=== PATIENT | female | born 1980 | race Hispanic/Latino ===

== ENCOUNTER 2019-06-15 19:06 | Inpatient (IN) | payer BC ==
[~2019-06-15] VITALS: Ht 157.5 cm; Wt 96.6 kg
[2019-06-15] MEDS ORDERED: SODIUM CHLORIDE 0.9% 1000ML 1,000 ML IV STA (19:20)
[2019-06-15 19:42] LABS: BASOPHILS % 0.3 % (0.0-1.0); EOSINOPHILS # (AUTO) 0.1 (0.0-0.4); EOSINOPHILS % 0.8 % (0.0-6.0); HEMATOCRIT 42.2 % (34.2-44.1); HEMOGLOBIN 13.9 g/dL (12.0-16.0); LYMPHOCYTES # (AUTO) 2.1 (1.0-3.2); LYMPHOCYTES % 22.2 % (18.0-39.1); MEAN CORPUSCULAR HEMOGLOBIN 28.3 pg (28-32); MEAN CORPUSCULAR HGB CONC 32.9 g/dL (31-35); MEAN CORPUSCULAR VOLUME 85.8 fL (81-99); MONOCYTES # (AUTO) 0.5 (0.2-0.8); MONOCYTES % 5.4 % (4.4-11.3); NEUTROPHILS # (AUTO) 6.5 (2.1-6.9); NEUTROPHILS % 70.5 % (38.7-80.0); PLATELET COUNT 245 x10e3/uL (140-360); RED BLOOD COUNT 4.92 x10e6/uL (3.6-5.1); RED CELL DISTRIBUTION WIDTH 12.8 % (11.7-14.4)
[2019-06-15 19:59] LABS: ALANINE AMINOTRANSFERASE 22 IU/L (0-55); ALBUMIN 3.9 g/dL (3.5-5.0); ALKALINE PHOSPHATASE 94 IU/L (40-150); ANION GAP 16.5 mmol/L (8-16); BLOOD UREA NITROGEN 14 mg/dL (7-26); BUN/CREATININE RATIO 17 (6-25); CALCIUM 9.5 mg/dL (8.4-10.2); CARBON DIOXIDE 25 mmol/L (22-29); CHLORIDE 104 mmol/L (98-107); CREATININE, SERUM 0.81 mg/dL (0.57-1.11); EST GLOMERULAR FILTRATION RATE > 60 ML/MIN (60-); GLUCOSE 139 mg/dL (74-118); POTASSIUM 3.5 mmol/L (3.5-5.1); SODIUM 142 mmol/L (136-145)
[2019-06-15] MEDS ORDERED: CEFTRIAXONE SOD 1 GM/NS 50 ML 50 ML IV ONE (20:00)
[2019-06-15] MEDS ORDERED: MORPHINE SULFATE INJ 4 MG/ML INJ 1ML IV ONE (20:00)
[2019-06-15] MEDS ORDERED: MORPHINE SULFATE 5 MG/ML VIAL IV ONE (20:00)
[2019-06-15] MEDS ORDERED: ONDANSETRON HCL INJ 2MG/ML 2ML 2 MG/ML VIAL IV ONE (20:00)
[2019-06-15] MEDS ORDERED: ACETAMINOPHEN 325 MG TAB PO ONE (20:30)
[2019-06-15 20:35] LABS: BILIRUBIN,URINE NEGATIVE (NEGATIVE); CLARITY,URINE SL CLOUDY (CLEAR); COLOR,URINE YELLOW (YELLOW); KETONES,URINE NEGATIVE (NEGATIVE); LEUKOCYTE ESTERASE ,URINE NEGATIVE (NEGATIVE); NITRITE,URINE NEGATIVE (NEGATIVE); PROTEIN,URINE DIPSTICK NEGATIVE (NEGATIVE); URINE UROBILINOGEN 0.2 mg/dL (0.2 - 1)
[2019-06-15 20:44] LABS: BACTERIA,URINE FEW /HPF; EPITHELIAL CELLS,URINE FEW /LPF; WBC,URINE (MAN) 0-5 /HPF (0-5)
[2019-06-15] MEDS ORDERED: IOPAMIDOL 370 MG/ML 200 ML INFUS..BTL INJ ONE (21:51)
[2019-06-15] MEDS ORDERED: SODIUM CHLORIDE 0.9% 50ML 50 ML ONE (21:51)
--- NOTE | 2019-06-15 21:56 | Diagnostic Imaging Report ---
EXAM: CT Abdomen and Pelvis WITH contrast INDICATION: Right lower quadrant pain COMPARISON: None. TECHNIQUE: Abdomen and pelvis were scanned utilizing a multidetector helical scanner from the lung base to the pubic symphysis after administration of IV contrast. Coronal and sagittal reformations were obtained. Routine protocol was performed. Scan was performed when during portal venous phase. IV CONTRAST: 100 mL of Isovue 370 ORAL CONTRAST: Water COMPLICATIONS: None RADIATION DOSE: Total DLP: 808 mGy*cm Estimated effective dose: (DLP x 0.015 x size factor) mSv CTDIvol has been reviewed. It is below the limits set by the Radiation Protocol Committee (RPC). Dose modulation, iterative reconstruction, and/or weight based adjustment of the mA/kV was utilized to reduce the radiation dose to as low as reasonably achievable. FINDINGS: LINES and TUBES: None. LOWER THORAX: Unremarkable HEPATOBILIARY: Diffuse decreased hepatic attenuation. The liver is enlarged, measures 18.6 cm in craniocaudal dimension at the right midclavicular line. No focal hepatic lesions. No biliary ductal dilation. GALLBLADDER: There are cholecystectomy clips. SPLEEN: No splenomegaly. PANCREAS: No focal masses or ductal dilatation. ADRENALS: No adrenal nodules KIDNEYS/URETERS: A 1 cm obstructive calculus at the right ureteropelvic junction with mild right hydronephrosis. Mild right perinephric fat stranding. Minimal right ureterectasis distal to the stone. No cystic or solid mass lesions. Kidneys are similar in enhancement pattern. GI TRACT: No abnormal distention, wall thickening, or evidence of bowel obstruction. Appendix is normal. PELVIC ORGANS/BLADDER: Unremarkable. LYMPH NODES: No lymphadenopathy. VESSELS: Unremarkable. PERITONEUM / RETROPERITONEUM: No free air or fluid. BONES: There are degenerative changes in the lumbar spine. SOFT TISSUES: Pfannenstiel incision scar intact.. Tiny periumbilical fat-containing hernia. IMPRESSION: 1. A 1 cm obstructive calculus at the right ureteropelvic junction with mild right hydronephrosis. 2. Hepatomegaly with hepatic steatosis. Signed by: Dylan Negron DO on 06/15/2019 9:53 PM
[2019-06-15] MEDS ORDERED: MORPHINE SULFATE INJ 4 MG/ML INJ 1ML IV PRN (22:15)
--- OUTSIDE RECORDS SUMMARY | 2019-06-15 22:28 | XMS REPORT ---
Author Author [facility] Address Unknown Phone Unavailable Care Team Providers Care Tobacco Grower Name Role Phone Kraig ALBARRAN Unavailable Unavailable Problems This patient has no known problems. Allergies, Adverse Reactions, Alerts This patient has no known allergies or adverse reactions. Medications This patient has no known medications. Results Test Description Test Time Test Comments Text Results Atomic Results Result Comments CT ABDOMEN/PELVIS W 2019-06-15 21:45:00 [place] [address] Patient Name: TERRY JOSE MR #: [id number] : 1980 Age/Sex: 38/F Req #: [id number] [facility] Physician: Ordered by: CELSO ALBARRAN MD Report #: [id number] Location: ER Room/Bed: Procedure: [id number] CT/CT ABDOMEN/PELVIS W Exam Date: 06/15/19 Exam Time: 2042 REPORT STATUS: Signed EXAM: CT Abdomen and Pelvis WITH contrast INDICAT ION: Right lower quadrant pain COMPARISON: None. TECHNIQUE: Abdomen and pelvis were scanned utilizing a multidetector helical scanner from the lung base to the pubic symphysis after administration of IV contrast. Coronal and sagittal reformations were obtained. Routine protocol was performed. Scan was performed when during portal venous phase. IV CONTRAST: 100 mL of Isovue 370 ORAL CONTRAST: Water COMPLICATIONS: None RADIATION DOSE: Total DLP: 808 mGy*cm Estimated effective dose: (DLP x 0.015 x size factor) mSv CTDIvol has been reviewed. It is below the limits set by the Radiation Protocol Committee (RPC). Dose modulation, iterative reconstruction, and/or weight based adjustment of the mA/kV was utilized to reduce the radiation dose to as low as reasonably achievable. FINDINGS: LINES and TUBES: None. LOWER THORAX: Unremarkable HEPATOBILIARY: Diffuse decreased hepatic attenuation. The cody er is enlarged, measures 18.6 cm in craniocaudal dimension at the right midclavicular line. No focal hepatic lesions. No biliary ductal dilation. GALLBLADDER: There are cholecystectomy clips. SPLEEN: No splenomegaly. PANCREAS: No focal masses or ductal dilatation. ADRENALS: No adrenal nodules KIDNEYS/URETERS: A 1 cm obstructive calculus at the right ureteropelvic junction with mild right hydronephrosis. Mild right perinephric fat stranding. Minimal right ureterectasis distal to the stone. No cystic or solid mass lesions. Kidneys are similar in enhancement pattern. GI TRACT: No abnormal distention, wall thickening, or evidence of bowel obstruction. Appendix is normal. PELVIC ORGANS/BLADDER: Unremarkable. LYMPH NODES: No lymphadenopathy. VESSELS: Unremarkable. PERITONEUM / RETROPERITONEUM: No free air or fluid. BONES: There are degenerative changes in the lumbar spine. SOFT TISSUES: Pfannenstiel incision scar intact.. Tiny periumbilical fat-containing hernia. IMPRESSION: 1. A 1 cm obstructive calculus at the right ureteropelvic junction with mild right hydronephrosis. 2. Hepatomegaly with hepatic steatosis. Signed by: Dylan Negron DO on 06/15/2019 9:53 PM Dictated By: DYLAN NEGRON DO 52 Transcribed By: QUITA on 06/15/192152 COPY TO: CELSO ALBARRAN MD
[2019-06-15] MEDS: CEFTRIAXONE SOD 1 GM/NS 50 ML 50 ML IV SCH (23:19)
[2019-06-15 23:26] VITALS: BP 173/101
--- NOTE | 2019-06-15 23:30 | NUR ---
RECEIVED PATIENT FROM ED AT THIS TIME VIA WHEELCHAIR, AMBULATED TO BED, STEADY GAIT NOTED. NO PAIN REPORTED AT THIS TIME. BP ELEVATED, LIKELY D/T TRANSFERRING, WILL REASSESS BP AFTER PATIENT HAS RESTED. NO S&S OF DISTRESS NOTED. REMINDED PATIENT OF NPO AFTER MIDNIGHT STATUS, PATIENT VERBALIZED UNDERSTANDING. EXPLAINED PROCESS OF URINATING IN HAT IN TOILET SO URINE CAN BE STRAINED, VERBALIZED UNDERSTANDING. PATIENT ORIENTED TO ROOM AND CALL LIGHT SYSTEM. BED LOCKED IN LOWEST POSITION, SIDE RAILS UPX2, CALL LIGHT IN REACH.
[2019-06-15] MEDS ORDERED: INFLUENZA VIRUS VAC SPLIT INJ 0.5 ML SYR IM SCH (23:45)
[2019-06-16] VITALS (8 sets, daily range): BP systolic 125–173; BP diastolic 72–101
[2019-06-16] MEDS ORDERED: HYDROCHLOROTH12.5 MG PO (00:20)
[2019-06-16] MEDS ORDERED: LOSARTAN POTAS100 MG PO (00:20)
[2019-06-16] MEDS: SODIUM CHLORIDE 0.9% 1000ML 1,000 ML IV SCH ×2 (05:49→19:04)
--- NOTE | 2019-06-16 11:03 | Consultation ---
DATE OF CONSULTATION: 06/16/2019 Urologic consultation. Consultation was called by the emergency room, Dr. Servin. CHIEF COMPLAINT/REASON FOR CONSULTATION: Kidney stones. HISTORY OF PRESENT ILLNESS: Mrs. Patterson is a very pleasant 38-year-old female who was in normal state of health and she has been experiencing acute sharp severe right-sided flank pain. She denied fevers. No chills. Positive nausea. No vomiting. PAST MEDICAL HISTORY: Denied. MEDICATIONS: Please see MAR. ALLERGIES: NKDA. SOCIAL HISTORY: Denied smoking, drinking. FAMILY HISTORY: Denied urologic stones or malignancies. REVIEW OF SYSTEMS: Noncontributory other than problems mentioned above for 12-organ systems PHYSICAL EXAMINATION: GENERAL: Middle-aged female, in no acute distress. VITAL SIGNS: Currently, temperature 96.4, pulse 64, respirations 18, and blood pressure 173/101. HEENT: Sclerae anicteric. NECK: Supple. BACK: Without costovertebral angle tenderness bilaterally currently. ABDOMEN: Soft, it is nontender, nondistended. No palpable mass. No palpable hernias. No palpable adenopathy. : Normal female external genitalia. EXTREMITIES: No edema. NEURO: Moves all four extremities. PSYCH: Alert and mood appropriate. SKIN: Intact. Normal color. PERTINENT LABORATORY DATA: CBC which was normal. Chem 7 normal except for glucose 139. BMP normal except for potassium 3.5. Urinalysis, 11 to 20 reds, 0-[address] scan revealing a 1 cm right UVJ stone. Mild right hydronephrosis and fatty liver. IMPRESSION: 1. Right 1 cm ureteropelvic junction calculus. 2. Right hydronephrosis. 3. Microscopic hematuria. 4. Hypertension. 5. Hypokalemia. 6. Renal colic. PLAN: Employ a brief trial passage. Likely the patient will need stenting. We will make the patient n.p.o. after midnight. Thank you for allowing me to participate in the care of your patient. I will be happy to follow along with you. MD MARYANN Thapa/MODL /[id number] cc: Milka Servin MD
[2019-06-16] MEDS ORDERED: HYDRALAZINE HCL 20 MG/ML VIAL IV PRN (12:45)
[2019-06-16] MEDS: LOSARTAN POTASSIUM 25 MG TAB PO SCH (13:27)
[2019-06-16] MEDS: HYDROCHLOROTHIAZIDE 25 MG TAB PO SCH (13:27)
--- NOTE | 2019-06-16 15:05 | History and Physical ---
CHIEF COMPLAINT: Right-sided flank pain, acute onset. HISTORY OF PRESENT ILLNESS: A 38-year-old female, morbidly obese, history of hypertension, reports to the ED with complaints of acute onset of right-sided flank pain that began last night. The patient reports that she was asleep and suddenly woke up with this right-sided flank pain. She denies any history of any kidney stones. No hematuria or any dysuria. Imaging studies here show 1 cm obstructing UPJ junction stone. The patient was evaluated at bedside. She is currently doing well with no complaints. She is scheduled for cystoscopy with ureteral stent placement tomorrow. REVIEW OF SYSTEMS: Pertinent positives: Right-sided flank pain. Pertinent negatives: Denies any chest pain, palpitation, nausea, vomiting, diarrhea, dysuria, hematuria, frequency, urgency, lightheadedness, dizziness, abdominal pain, headaches, shortness of breath, cough, congestion, fever, or any other complaints. The rest of 14-point review of systems are reviewed with the patient and are negative. ALLERGIES: NO KNOWN DRUG ALLERGIES. MEDICATIONS: Hydrochlorothiazide and losartan. PAST MEDICAL HISTORY: Hypertension and morbid obesity. FAMILY HISTORY: Hypertension and diabetes. PAST SURGICAL HISTORY: She has had cholecystectomy, , and carpal tunnel surgery. SOCIAL HISTORY: She is a social drinker. Does not smoke. PHYSICAL EXAMINATION: VITAL SIGNS: Temperature is 97.2, pulse 60 respiratory rate is 18, blood pressure 125/72, and pulse ox 99% on room air. GENERAL: Not in acute distress. Alert and oriented x3. Cooperative on examination. HEENT: Normocephalic, atraumatic. Eyes; pupils are equal, round, and reactive to light bilaterally. Extraocular movements are intact bilaterally. Throat; no evidence of erythema or exudates in the posterior pharynx. Has poor dentition. NECK: Supple. Good range of motion. PULMONARY: Clear to auscultation bilaterally. No wheezing, rales, or rhonchi. No crackles appreciated. PSYCHIATRIC: Positive S1, S2. No murmurs, rubs, or gallops. ABDOMEN: Soft, nondistended, nontender to palpation. Bowel sounds present. MUSCULOSKELETAL: Strength is 5/5 throughout. No evidence of any muscle deficits on examination. No weakness appreciated. NEUROLOGIC: Cranial nerves II through XII grossly intact. No evidence of any neurological deficits on exam. SKIN: Intact. Warm to touch. Good cap refill. PSYCHIATRIC: Normal affect and mood. EXTREMITIES: No edema. Good range of motion throughout. LABORATORY FINDINGS: White count is 9.2, hemoglobin 13.9, hematocrit 42, and platelets of 245. Chemistry; sodium 142, potassium 3.5, chloride 104, bicarb 25, anion gap of 16, BUN is 14, creatinine 0.81, glucose 139, calcium 9.5, total bilirubin is 0.4, AST 18, and ALT 22, alkaline phosphatase 94, total protein 7.7, albumin is 3.9, and beta hCG was negative. Albumin 3.9. Urinalysis was found to be RBCs 11-20. Microbiology; urine culture is pending. IMAGING STUDIES: CT abdomen and pelvis showed a 1 cm obstructing calculus of the right ureteral pelvic junction with mild right hydronephrosis. Hepatomegaly and hepatic steatosis. IMPRESSION: 1. Right-sided flank pain with right-sided 1 cm ureteropelvic junction calculus. 2. Right hydronephrosis secondary to obstruction. 3. Microcytic hematuria. 4. Hypertension. 5. Morbid obesity. PLAN: At this time, she is scheduled by Urology tomorrow for cystoscopy with the right ureteral stent placement. She is on IV antibiotics, antinausea medication, IV fluids, and pain control. Resume same antihypertensive medications. Encourage ambulation. Regular diet. N.p.o. after midnight. Lovenox for DVT prophylaxis. MD JAVIER Abdi/YESYL /[id number]
--- NOTE | 2019-06-16 15:32 | Diagnostic Imaging Report ---
EXAM: Abdomen 2 Views INDICATION: ^URETEROPELVIC JUNCTION OBSTUCTION ^[id number] ^1500 COMPARISON: CT abdomen and pelvis 06/15/2019 FINDINGS: Lines/tubes: None. Moderate amount of stool in the colon. No dilated loops of small bowel. Status post cholecystectomy. Unchanged 1 cm calcification in the region of the proximal right ureter. Few additional calcifications in the pelvis corresponds to a phlebolith noted on yesterday's CT. No abnormal soft tissue masses. No degenerative changes in the lumbar spine and pelvis. IMPRESSION: 1. Persistent 1 cm calcification in the region of the proximal right ureter. 2. Retained moderate stool burden. Signed by: Dr. May Allen M.D. on 06/16/2019 3:29 PM
[2019-06-16] MEDS: ENOXAPARIN 30 MG/0.3 ML SYR SC SCH (18:45)
--- NOTE | 2019-06-16 19:00 | NUR ---
RECEIVED PATIENT IN BEDSIDE REPORT. PATIENT RESTING IN BED AT THIS TIME. NO PAIN REPORTED AT THIS TIME. REMINDED PATIENT TO URINATE IN HAT IN TOILET SO URINE CAN BE STRAINED AND OF NPO STATUS AFTER MIDNIGHT, PATIENT VERBALIZED UNDERSTANDING. BED LOCKED IN LOWEST POSITION, SIDE RAILS UPX2, CALL LIGHT IN REACH.
--- NOTE | 2019-06-16 20:08 | NUR ---
SPOKE WITH MD BENITEZ, PATIENT HAS NOT PASSED STONE YET, MD ASKED PATIENT BE PLACED ON SCHEDULE FOR PROCEDURE TOMORROW. CONSENT IS SIGNED, PATIENT NPO AFTER MIDNIGHT. SPOKE WITH SARBJIT, STRAIGHT LINE PRESS SETTER, STATED SHE WILL PLACE PATIENT ON SCHEDULE FOR TOMORROW.
[2019-06-16] MEDS: CEFTRIAXONE SOD 1 GM/NS 50 ML 50 ML IV SCH (21:57)
[2019-06-17] VITALS (8 sets, daily range): BP systolic 111–176; BP diastolic 69–97
[2019-06-17] MEDS: SODIUM CHLORIDE 0.9% 1000ML 1,000 ML IV SCH ×3 (06:08→14:08)
[2019-06-17 06:30] LABS: BASOPHILS % 0.3 % (0.0-1.0); EOSINOPHILS # (AUTO) 0.1 (0.0-0.4); EOSINOPHILS % 0.9 % (0.0-6.0); HEMATOCRIT 40.4 % (34.2-44.1); HEMOGLOBIN 12.8 g/dL (12.0-16.0); LYMPHOCYTES # (AUTO) 2.4 (1.0-3.2); LYMPHOCYTES % 18.3 % (18.0-39.1); MEAN CORPUSCULAR HEMOGLOBIN 27.9 pg (28-32); MEAN CORPUSCULAR HGB CONC 31.7 g/dL (31-35); MEAN CORPUSCULAR VOLUME 88.2 fL (81-99); MONOCYTES # (AUTO) 0.7 (0.2-0.8); MONOCYTES % 5.3 % (4.4-11.3); NEUTROPHILS # (AUTO) 9.6 (2.1-6.9); NEUTROPHILS % 74.7 % (38.7-80.0); PLATELET COUNT 232 x10e3/uL (140-360); RED BLOOD COUNT 4.58 x10e6/uL (3.6-5.1); RED CELL DISTRIBUTION WIDTH 12.8 % (11.7-14.4)
[2019-06-17 06:51] LABS: ANION GAP 11.8 mmol/L (8-16); BLOOD UREA NITROGEN 8 mg/dL (7-26); BUN/CREATININE RATIO 13 (6-25); CALCIUM 8.9 mg/dL (8.4-10.2); CARBON DIOXIDE 28 mmol/L (22-29); CHLORIDE 103 mmol/L (98-107); CREATININE, SERUM 0.64 mg/dL (0.57-1.11); EST GLOMERULAR FILTRATION RATE > 60 ML/MIN (60-); GLUCOSE 119 mg/dL (74-118); POTASSIUM 3.8 mmol/L (3.5-5.1); SODIUM 139 mmol/L (136-145)
--- NOTE | 2019-06-17 06:55 | NUR ---
Received patient lying in bed with eyes closed. Spouse at bedside. Respiration even and unlabored without SOB. Call light in reach.
--- NOTE | 2019-06-17 06:56 | NUR ---
Received patient lying in bed with eyes closed. Respiration even and unlabored without SOB. Call light in reach.
[2019-06-17] MEDS: LOSARTAN POTASSIUM 25 MG TAB PO SCH (09:00)
[2019-06-17] MEDS: HYDROCHLOROTHIAZIDE 25 MG TAB PO SCH (09:00)
[2019-06-17] MEDS ORDERED: IOPAMIDOL 300MG/ML 50ML INFUS..BTL IV ONE (09:48)
--- NOTE | 2019-06-17 12:00 | NUR ---
Patient went to OR at this time.
[2019-06-17] MEDS ORDERED: LABETALOL HCL 20 ML ONE (12:34)
--- NOTE | 2019-06-17 12:55 | NUR ---
Patient is transported back to room from surgery. Patient voided. Denies pain. Respiration even and unlabored without SOB. Call light in reach.
[2019-06-17] MEDS ORDERED: MIDAZOLAM HCL 2 MG/2 ML VIAL ONE (13:41)
[2019-06-17] MEDS: ONDANSETRON HCL INJ 2MG/ML 2ML 2 MG/ML VIAL IV PRN (15:10)
[2019-06-17] MEDS ORDERED: HYDROCODONE/APAP 5MG-325MG TAB PO PRN (16:15)
[2019-06-17] MEDS: ENOXAPARIN 30 MG/0.3 ML SYR SC SCH (16:40)
[2019-06-17] MEDS ORDERED: LIDOCAINE HCL 2% LOCAL INJ 5 ML SDV VIAL INJ ONE (18:35)
[2019-06-17] MEDS ORDERED: DEXAMETHASONE SOD PHOS INJ 4 MG/ML VIAL ONE (18:35)
[2019-06-17] MEDS ORDERED: ONDANSETRON HCL INJ 2MG/ML 2ML 2 MG/ML VIAL ONE (18:35)
[2019-06-17] MEDS ORDERED: PROPOFOL IV EMULSION 10 MG/ML 20 ML VIAL ONE (18:35)
[2019-06-17] MEDS ORDERED: SEVOFLURANE INHAL SOLN 250 ML PEN BTL ONE (18:35)
--- NOTE | 2019-06-17 19:11 | NUR ---
PT IS RESTING IN BED. RESPIRATION IS EVEN AND UNLABORED, NO DISTRESS NOTED. BED IN THE LOWEST POSITION, LOCKED, AND CALL LIGHT WITHIN REACH. WILL CONTINUE TO MONITOR.
--- NOTE | 2019-06-17 19:20 | NUR ---
Report given to slot shift manager. respiration even and unlabored without SOB. Call light in reach.
[2019-06-17] MEDS: CEFTRIAXONE SOD 1 GM/NS 50 ML 50 ML IV SCH (21:10)
[2019-06-18] VITALS (8 sets, daily range): BP systolic 137–171; BP diastolic 83–102
[2019-06-18] MEDS: SODIUM CHLORIDE 0.9% 1000ML 1,000 ML IV SCH ×4 (01:35→22:03)
[2019-06-18 06:45] LABS: BASOPHILS % 0.1 % (0.0-1.0); HEMATOCRIT 39.8 % (34.2-44.1); HEMOGLOBIN 13.2 g/dL (12.0-16.0); LYMPHOCYTES # (AUTO) 2.2 (1.0-3.2); MEAN CORPUSCULAR HEMOGLOBIN 28.6 pg (28-32); MEAN CORPUSCULAR HGB CONC 33.2 g/dL (31-35); MEAN CORPUSCULAR VOLUME 86.1 fL (81-99); MONOCYTES # (AUTO) 0.6 (0.2-0.8); MONOCYTES % 3.5 % (4.4-11.3); NEUTROPHILS # (AUTO) 13.9 (2.1-6.9); NEUTROPHILS % 82.2 % (38.7-80.0); PLATELET COUNT 273 x10e3/uL (140-360); RED BLOOD COUNT 4.62 x10e6/uL (3.6-5.1); RED CELL DISTRIBUTION WIDTH 12.6 % (11.7-14.4)
[2019-06-18 07:00] LABS: BLOOD UREA NITROGEN 10 mg/dL (7-26); BUN/CREATININE RATIO 15 (6-25); CALCIUM 9.8 mg/dL (8.4-10.2); CARBON DIOXIDE 26 mmol/L (22-29); CHLORIDE 104 mmol/L (98-107); CREATININE, SERUM 0.68 mg/dL (0.57-1.11); EST GLOMERULAR FILTRATION RATE > 60 ML/MIN (60-); GLUCOSE 118 mg/dL (74-118); SODIUM 139 mmol/L (136-145)
--- NOTE | 2019-06-18 07:00 | NUR ---
Received patient lying in bed with eyes open. Respiration even and unlabored without SOB. Family member at bedside. Call light in reach.
[2019-06-18] MEDS: LOSARTAN POTASSIUM 25 MG TAB PO SCH (08:33)
[2019-06-18] MEDS: HYDROCHLOROTHIAZIDE 25 MG TAB PO SCH (08:34)
--- NOTE | 2019-06-18 12:05 | Operative Report ---
DATE OF PROCEDURE: 06/15/2019 SURGEON: Laoy Doyle MD PREOPERATIVE DIAGNOSES: 1. Right-sided hydronephrosis. 2. Microscopic hematuria. POSTOPERATIVE DIAGNOSES: 1. Right-sided hydronephrosis. 2. Microscopic hematuria. PROCEDURES: 1. Cystourethroscopy with left ureter catheterization, left retrograde pyelogram (separate procedure for microscopic hematuria). 2. Cystourethroscopy with insertion of a right indwelling stent (entirely separate procedure for right hydronephrosis). 3. Supervision of fluoroscopy. 4. Interpretation of retrograde pyelography. ANESTHESIA: General. ESTIMATED BLOOD LOSS: Minimal. COMPLICATIONS: None. INDICATIONS: Ms. Patterson is a very pleasant 38-year-old female, who admitted to the hospital with a large 1 cm right UPJ stone and hydronephrosis. She and I had a long discussion alternatives, risks, and benefits of including nothing, cystoscopy, stent placement, percutaneous nephrostomy. She voiced understanding of the options, alternatives, risks, and benefits, and elected to proceed. PROCEDURE IN DETAIL: After informed consent was obtained, the patient was taken to the operative suite, placed supine on the operating table, and underwent general anesthesia by the Anesthesia Service. She was placed in the dorsal lithotomy position, sterilely prepped and draped in standard fashion for cystoscopy. A 21-Mohawk cystoscopy was inserted per urethra. Normal urethra was noted. Panendoscopy of the bladder revealed no tumors, no stones. Both orifices in normal anatomic location and position. Bilateral retrograde pyelogram was performed; left was normal; the right revealed a very large 1 cm ureteropelvic junction stone was manipulated into the renal pelvis. The ureteral stent was deployed with a coil in the renal pelvis and a coil in the bladder. The patient's bladder was drained. She was awakened from anesthesia and transported to recovery room in excellent condition. Supervision of fluoroscopy, interpretation of retrograde pyelography: I was present for the entire procedure and supervised fluoroscopy. There was no radiologist present for the entire procedure. Attention was turned towards the left and right ureters, which were catheterized and retrograde pyelogram was performed revealing delicate ureters in left, delicate pelvocaliceal systems; on the right, 1 cm UPJ stone with proximal hydronephrosis. Postoperative views on the right side of the stent in adequate position. MD MARYANN Thapa/MICA /[id number]
--- NOTE | 2019-06-18 14:10 | NUR ---
Visit made by the Spiritual Care Department Pastoral Visitor, Hina Zavala. PV provided pastoral presence, prayer, hospitality, and supportive listening. Pastoral Visitor informed pt/family of the scope of [employer] and availability. JOSE ANTONIO MADRIGAL Director [employer] Spiritual Care Department O: [phone] Pager: [phone] ([phone] calling from)
[2019-06-18] MEDS: ENOXAPARIN 30 MG/0.3 ML SYR SC SCH (16:35)
[2019-06-18] MEDS: CEFAZOLIN SOD 1 GM/NS 50ML 50 ML IV SCH ×2 (16:35→21:17)
--- NOTE | 2019-06-18 19:09 | NUR ---
PT IS RESTING IN BED WATCHING TELEVISION. RESPIRATION IS EVEN AND UNLABORED, NO DISTRESS NOTED. BED IN THE LOWEST POSITION, LOCKED, AND CALL LIGHT WITHIN REACH. WILL CONTINUE TO MONITOR.
--- NOTE | 2019-06-18 19:11 | NUR ---
Report given to shift boss. Respiration even and unlabored without SOB. Call light in reach.
--- NOTE | 2019-06-18 21:40 | Consultation ---
DATE OF CONSULTATION: REASON FOR CONSULTATION: UTI with Staphylococcus aureus and renal stone. HISTORY OF PRESENT ILLNESS: This patient is very pleasant 38-year-old female, obese patient, hypertension, comes in with pain on the right side, acute. She has for couple of days, so she came here. There was no fever or chills. She came to the emergency room. In the emergency room, she was diagnosed with kidney stone. She was admitted. She has been seen by Urology, stent was placed. However, her urine cultures is growing Staphylococcus aureus. I was asked to see her. The patient is currently lying in bed comfortably, complaining of pain as mentioned above. PAST MEDICAL HISTORY: Obesity and hypertension. PAST SURGICAL HISTORY: Denies. ALLERGIES: NKA. SOCIAL HISTORY: There is no smoking, drug abuse, or alcohol abuse. FAMILY HISTORY: Hypertension and diabetes. HOME MEDICATIONS: Medication list; she is on Cozaar, hydrochlorothiazide, Zofran. She was on Rocephin. REVIEW OF SYSTEMS: At the present time: HEENT: Negative. PULMONARY: Negative. CARDIAC: Negative. : Negative. SKIN: There is no rash. LABORATORY DATA: Reviewed. As mentioned above, the urine shows Staphylococcus aureus. When she first came, she had a white count of 9.24, came up to 16.8; hemoglobin 39. Her sodium was 139 and potassium 4. IMPRESSION AND PLAN: 1. Urinary tract infection with Staphylococcus aureus. Recommendation; discontinue Rocephin and put her on Ancef 1 g q.8. Recheck CBC. She needs 14 days, perhaps longer since she had the stent now and their plan for her is lithotripsy. So, I am going to put her on oral antibiotic after the procedure. We will follow as an outpatient. 2. Obesity. 3. Hypertension. 4. We will follow. MD TARAH Alcazar/MICA /[id number]
[2019-06-19] VITALS (8 sets, daily range): BP systolic 123–164; BP diastolic 76–111
[2019-06-19] MEDS: CEFAZOLIN SOD 1 GM/NS 50ML 50 ML IV SCH ×3 (05:07→21:59)
[2019-06-19 06:46] LABS: BASOPHILS # (AUTO) 0.1 (0.0-0.1); BASOPHILS % 0.4 % (0.0-1.0); EOSINOPHILS # (AUTO) 0.1 (0.0-0.4); EOSINOPHILS % 0.9 % (0.0-6.0); HEMATOCRIT 40.8 % (34.2-44.1); HEMOGLOBIN 12.9 g/dL (12.0-16.0); LYMPHOCYTES # (AUTO) 3.9 (1.0-3.2); LYMPHOCYTES % 32.5 % (18.0-39.1); MEAN CORPUSCULAR HGB CONC 31.6 g/dL (31-35); MEAN CORPUSCULAR VOLUME 88.5 fL (81-99); MONOCYTES # (AUTO) 0.8 (0.2-0.8); MONOCYTES % 6.7 % (4.4-11.3); NEUTROPHILS # (AUTO) 6.9 (2.1-6.9); PLATELET COUNT 247 x10e3/uL (140-360); RED BLOOD COUNT 4.61 x10e6/uL (3.6-5.1); RED CELL DISTRIBUTION WIDTH 13.1 % (11.7-14.4)
[2019-06-19 07:12] LABS: ANION GAP 12.2 mmol/L (8-16); BLOOD UREA NITROGEN 11 mg/dL (7-26); BUN/CREATININE RATIO 15 (6-25); CALCIUM 8.9 mg/dL (8.4-10.2); CARBON DIOXIDE 29 mmol/L (22-29); CHLORIDE 102 mmol/L (98-107); CREATININE, SERUM 0.75 mg/dL (0.57-1.11); EST GLOMERULAR FILTRATION RATE > 60 ML/MIN (60-); GLUCOSE 101 mg/dL (74-118); POTASSIUM 4.2 mmol/L (3.5-5.1); SODIUM 139 mmol/L (136-145)
[2019-06-19] MEDS: LOSARTAN POTASSIUM 25 MG TAB PO SCH (08:38)
[2019-06-19] MEDS: HYDROCHLOROTHIAZIDE 25 MG TAB PO SCH (08:38)
[2019-06-19] MEDS ORDERED: ACETAMINOPHEN 325 MG TAB PO PRN (13:15)
[2019-06-19] MEDS: ONDANSETRON HCL INJ 2MG/ML 2ML 2 MG/ML VIAL IV PRN (16:51)
[2019-06-19] MEDS: ENOXAPARIN 30 MG/0.3 ML SYR SC SCH (18:10)
--- NOTE | 2019-06-19 19:00 | NUR ---
RECEIVED PATIENT IN BEDSIDE REPORT. PATIENT STATES SHE IS NO LONGER NAUSEATED, BUT DOES REPORT A HEADACHE OF 8/10, WILL ADMINISTER PAIN MEDICATION. REMINDED PATIENT TO CONTINUE STRAINING URINE, PATIENT VERBALIZED UNDERSTANDING. R FA 18G IV ASYMPTOMATIC, INTACT, AND PATENT. NO S&S OF DISTRESS NOTED. BED LOCKED IN LOWEST POSITION, SIDE RAILS UPX2, CALL LIGHT IN REACH.
[2019-06-19] MEDS: SODIUM CHLORIDE 0.9% 1000ML 1,000 ML IV SCH (20:39)
[2019-06-20] VITALS: BP 158/95
[2019-06-20 04:00] VITALS: BP 140/92
[2019-06-20] MEDS: CEFAZOLIN SOD 1 GM/NS 50ML 50 ML IV SCH (05:22)
--- NOTE | 2019-06-20 07:21 | Discharge Summary ---
FINAL DISCHARGE DIAGNOSES: 1. Right-sided flank pain with underlying nephrolithiasis, 1 cm obstructed stone, status post right ureteral stent placement, performed by Urology. 2. Urinary tract infection. 3. Leukocytosis, resolved. CONSULTANTS: Urology and Infectious Disease. PHYSICAL EXAMINATION: VITAL SIGNS: Temperature is 97.7, pulse is 70, respiratory rate is 18, blood pressure 123/76, pulse ox 96% on room air. LABORATORY FINDINGS: Show white count is 11.9, hemoglobin 12.9, hematocrit is 40.8, and platelets of 247. Chemistry; sodium 139, potassium 4.2, chloride 102, bicarb 29, anion gap of 12, BUN 11, creatinine 0.75, glucose 101, calcium is 8.9. LFTs within normal range. Albumin 3.9. Beta-hCG is negative. Urinalysis, 11 to 20 rbc's. MICROBIOLOGY: Urine culture positive for Staphylococcus aureus. IMAGING STUDIES: CT abdomen and pelvis showed a 1 cm obstructing calculus at the right ureteropelvic junction with mild right hydronephrosis. Hepatomegaly with hepatic steatosis. Abdominal x-ray shows a persistent 1 cm calcification in the region of the proximal right ureter. Retained moderate stool burden. HOSPITAL COURSE: A 38-year-old female, morbidly obese, comes into the ED with complaints of right-sided flank pain. Imaging studies, CT abdomen and pelvis consistent with a right 1 cm ureteropelvic obstruction, renal stone, requiring Urology consultation. The patient underwent status post cystoscopy with pyelogram on 06/17/2019. With a right ureteral stent placement. While here, the patient was on IV antibiotics. Her urine cultures were positive for Staphylococcus aureus, in which Infectious Disease was consulted. The patient will be discharged on oral Keflex for 2 weeks. The patient was cleared for discharge by ID and Urology. She was advised to follow up with Urology in 2 weeks' time as well as Infectious Disease. On the day of discharge, vital signs were stable, labs reviewed and stable. The patient is seen and evaluated, and examined thoroughly on the day of discharge. No other complaints. The patient verbalized understanding and agrees to plan of care to follow up accordingly as an outpatient with the primary care physician in 1 week and urologist and Infectious Disease in 2 weeks' time. MEDICATIONS: See med reconciliation form. DISPOSITION: Home. CONDITION: Stable. DIET: Heart healthy. In the event of any worsening symptoms, the patient was advised to come back to the ED for further evaluation. Discharge summary took greater than 35 minutes. MD JAVIER Abdi/MICA /[id number]
[2019-06-20 08:00] VITALS: BP 147/98
[2019-06-20] MEDS: HYDROCHLOROTHIAZIDE 25 MG TAB PO SCH (09:29)
[2019-06-20] MEDS: LOSARTAN POTASSIUM 25 MG TAB PO SCH (09:31)
[2019-06-20] MEDS: SODIUM CHLORIDE 0.9% 1000ML 1,000 ML IV SCH (09:59)
[2019-06-20 12:00] VITALS: BP 132/89
--- NOTE | 2019-06-21 11:38 | Discharge Summary ---
FINAL DISCHARGE DIAGNOSES: 1. Right-sided flank pain with underlying nephrolithiasis, 1 cm obstructed stone, status post right ureteral stent placement performed by Urology. 2. Urinary tract infection. 3. Leukocytosis, resolved. CONSULTANTS: Urology and Infectious Disease. PHYSICAL EXAMINATION: VITAL SIGNS: Temperature is 98.4, pulse 82, respiratory rate is 20, blood pressure 184/89, pulse ox 100% on room air. LABORATORY DATA: Lab findings show WBCs 11.9, hemoglobin 12.9, hematocrit 41, platelets of 247. Chemistry, sodium 139, potassium 4.2, chloride 102, bicarb 29, anion gap of 12, BUN is 11, creatinine is 0.75, glucose 101, calcium is 8.9. LFTs normal. Albumin 3.9. Beta HCG negative. Urinalysis, 11 to 20 RBCs. MICROBIOLOGY: Urine culture positive for Staphylococcus aureus. IMAGING STUDIES: CT abdomen showed a 1 cm obstructing calculus of the right ureteropelvic junction with right hydronephrosis. Hepatomegaly and hepatic steatosis. Abdominal x-ray shows persistent 1 cm calcification in region of the proximal right ureter. Retained moderate stool burden. HOSPITAL COURSE: A 38-year-old female, morbidly obese, came into the ER with complaints of right-sided flank pain. Imaging studies, CT abdomen and pelvis consistent with a right 1 cm ureteropelvic obstruction with a renal stone requiring Urology consultation. The patient underwent status post cystoscopy with pyelogram on 06/17/2019 and had a right ureteral stent placed. While here, the patient was doing well. She was on IV antibiotics. Her urine culture was positive for Staphylococcus aureus, in which ID was consulted. The patient was discharged on oral Keflex for 2 weeks as per recommendations by ID. The patient was stable for discharge by ID and Urology. The patient was in the process of being discharged on 06/19/2019. Her blood pressure was slightly elevated. She was having some nausea and vomiting. This morning I came in at 10:30, 09/09/2018, the patient was doing well. No nausea. No vomiting. No abdominal pain. Blood pressure stable. The patient reports she is doing well, ready for discharge to home. She has been cleared for discharge by all consultants. She was advised to follow up upon discharge. Her vital signs were stable. Labs reviewed and stable. The patient is seen and evaluated, examined thoroughly on the day of discharge. No other complaints. The patient verbalized understanding and agreed with plan of care to follow up accordingly as an outpatient with the primary care physician in 1 week, and urologist and with Infectious Disease in 1 to 2 weeks' time. MEDICATIONS: See med reconciliation form. DISPOSITION: Home. CONDITION: Stable. DIET: Heart healthy. In the event of any worsening symptoms, the patient was advised to come back to the ED for further evaluation. Discharge summary took greater than 35 minutes. MD JAVIER Abdi/MODL /[id number]
== END 2019-06-20 15:07 | disposition home or self-care (01) | DRG 661 ==
LOC: ER 19:06 → INTOOBSV 22:25 → ERHOLD 22:25 → MED/SURG 23:33 → OBSVTOIN 06-18 10:51 → INTOOBSV 06-18 12:50
PROVIDERS: ADMIT Internal Medicine; ATTEND Internal Medicine
PROC: 0T768DZ Dilation of Right Ureter with Intraluminal Device, Via Natural or Artificial Opening Endoscopic (ICD-10-PCS; principal; 2019-06-15)
PROC: BT1F1ZZ Fluoroscopy of Left Kidney, Ureter and Bladder using Low Osmolar Contrast (ICD-10-PCS; 2019-06-15)
DX: N13.6 Pyonephrosis (principal); E66.01 Morbid (severe) obesity due to excess calories; I10 Essential (primary) hypertension; R31.29 Other microscopic hematuria; E87.6 Hypokalemia; B95.61 Methicillin susceptible Staphylococcus aureus infection as the cause of diseases classified elsewhere; Z68.39 Body mass index [BMI] 39.0-39.9, adult
CPT/HCPCS: 36415; 74018; 74420; 80048; 85025; 87086; 87186; C1758; C2617; G0378; J0360; J0690; J0696; J1100; J1650; J2001; J2250; J2270; J2405; J7030

== ENCOUNTER → 2019-06-28 | Day surgery (SDC) | payer BC ==
--- NOTE | 2019-06-26 14:52 | Diagnostic Imaging Report ---
Exam: KUB - 2 views Indication: Preoperative Comparison: KUB of 06/16/2019 Findings: Right lower pole renal calculus measures up to 12 mm. Right internal nephroureteral stent in place with proximal loop is not fully formed. No radiographically apparent left renal calculi. Phleboliths in the pelvis. Osseous structures appear unremarkable. Status post cholecystectomy. Impression: Right lower pole renal calculus measuring up to 12 mm. Right internal nephroureteral stent in place with proximal loop not fully formed. Signed by: Lola Galarza MD on 06/26/2019 2:49 PM
[~2019-06-28] MED LIST: CEFTRIAXONE SOD 1 GM/NS 50 ML 50 ML IV ONE; CEPHALEXIN500 MG PO; DEXAMETHASONE SOD PHOS INJ 4 MG/ML VIAL ONE; HYDROCHLOROTH12.5 MG PO; LIDOCAINE HCL 2% LOCAL INJ 5 ML SDV VIAL INJ ONE; LOSARTAN POTAS100 MG PO; LOSARTAN-HCTZ1 EACH PO; MIDAZOLAM HCL 2 MG/2 ML VIAL ONE; ONDANSETRON HCL INJ 2MG/ML 2ML 2 MG/ML VIAL ONE; PROPOFOL IV EMULSION 10 MG/ML 20 ML VIAL ONE; SEVOFLURANE INHAL SOLN 250 ML PEN BTL ONE
[2019-06-28 10:00] VITALS: BP 135/95
--- NOTE | 2019-06-28 17:32 | Operative Report ---
DATE OF PROCEDURE: 06/28/2019 SURGEON: Layo Doyle MD PREOPERATIVE DIAGNOSIS: Right kidney stone. POSTOPERATIVE DIAGNOSIS: Right kidney stone. PROCEDURES: 1. Staged shock wave lithotripsy right side. 2. Supervision of fluoroscopy. ANESTHESIA: General. ESTIMATED BLOOD LOSS: Minimal. COMPLICATION: None. INDICATIONS: Ms. Patterson is a very pleasant 38-year-old female with history of kidney stone, which intermittently symptomatic and stent placement. She and I had a long discussion about alternatives, risks, benefits of doing nothing, shock wave lithotripsy, ureteroscopy, percutaneous surgery or open surgery. She voiced understanding of the options, alternatives, risks, and benefits, and elected to proceed. PROCEDURE IN DETAIL: After informed consent was obtained, the patient was taken to the operative suite, underwent general anesthesia by the Anesthesia Service, was placed in supine position and prepped and draped in a standard fashion for lithotripsy. Stone was localized in the X, Y, and Z planes. Treatment was performed per the treatment report. The patient tolerated procedure well and transferred to the recovery room in excellent condition. Supervision of fluoroscopy: I was present for the entire procedure and supervised fluoroscopy. There was no radiologist present. Dosage per treatment report. Layo Doyle MD ES/MODL /[id number]
== END | disposition home or self-care (01) ==
LOC: OR 06:02
PROVIDERS: ATTEND Urology
DX: N20.0 Calculus of kidney (principal); I10 Essential (primary) hypertension
CPT/HCPCS: 50590; 74018; 81025; 93005; J0696; J1100; J2001; J2250; J2405; J2704

== ENCOUNTER → 2019-07-12 | Day surgery (SDC) | payer BC ==
[~2019-07-12] MED LIST changes: +ACETAMINOPHEN 1000 MG/100 ML IV ONE; +FENTANYL CITRATE/PF 100MCG/2 ML INJ ONE; +IOPAMIDOL 300MG/ML 50ML INFUS..BTL IV ONE
[2019-07-12 08:10] VITALS: BP 116/76
--- NOTE | 2019-07-17 12:50 | Operative Report ---
DATE OF PROCEDURE: 07/12/2019 SURGEON: Layo Doyle MD PREOPERATIVE DIAGNOSES: 1. Indwelling right ureteral stent. 2. Right renal calculus. POSTOPERATIVE DIAGNOSIS: Passed stone. PROCEDURES: 1. Cystourethroscopy with complicated removal of a right indwelling ureteral stent (entirely separate procedure complicated secondary to the encrustation). 2. Right-sided ureteroscopy (entirely separate procedure in a staged fashion on the right side for stent and previous stone). 3. Supervision of fluoroscopy. 4. Interpretation of retrograde pyelography. ANESTHESIA: General. ESTIMATED BLOOD LOSS: Minimal. COMPLICATIONS: None. INDICATIONS FOR PROCEDURE: Ms. Patterson is a very pleasant 38-year-old female patient with a history of prior stent placement and lithotripsy. She and I had a long discussion about alternatives, risks, and benefits of doing nothing, stent removal, ureteroscopy, percutaneous surgery, or open surgery. She voiced understanding of the options, alternatives, risks, and benefits, and elected to proceed. PROCEDURE IN DETAIL: After informed consent was obtained, the patient was taken to the operative suite, placed supine on the operating table, and underwent general anesthesia by Anesthesia Service. The patient was placed in dorsal lithotomy position, sterilely prepped and draped for cystoscopy. A 21-Hungarian cystoscope inserted per urethra. Normal urethra was noted. Panendoscopy of the bladder revealed no tumors, no stones. A stent was seen extruding through the right orifice and encrusted and was grasped. Attempts were made to cannulate and failed secondary to encrustation. A guidewire was inserted alongside the stent and was seen to coil at the level of the renal pelvis on fluoroscopy. Ureteroscope was advanced to proximal ureter. Retrograde pyelogram was performed through ureteroscope revealing a dilated collecting system. No other filling defects. The collecting system did drain promptly under fluoroscopy. Safety wire was removed. The bladder was drained. The patient was awakened from anesthesia and transferred to recovery room in excellent condition. Supervision of fluoroscopy and interpretation of retrograde pyelography: I was present for the entire procedure and supervised fluoroscopy for both stent removal portions as well as ureteroscopy portion. Retrograde pyelogram was performed through ureteroscope revealing dilated collecting system, interim removal of ureteral calculi. MD MARYANN Thapa/MODL /[id number] cc: Jeffery Schmidt
== END | disposition home or self-care (01) ==
LOC: OR 05:30
PROVIDERS: ATTEND Urology
DX: N20.0 Calculus of kidney (principal); Z46.6 Encounter for fitting and adjustment of urinary device; I10 Essential (primary) hypertension
CPT/HCPCS: 52351; 74420; 81025; C1788; J0131; J0696; J1100; J2001; J2250; J2405; J2704; J3010; Q9967

== ENCOUNTER → 2019-10-24 | Outpatient (CLI) | payer BC ==
[~2019-10-24] MED LIST changes: -ACETAMINOPHEN 1000 MG/100 ML IV ONE; -CEFTRIAXONE SOD 1 GM/NS 50 ML 50 ML IV ONE; -DEXAMETHASONE SOD PHOS INJ 4 MG/ML VIAL ONE; -FENTANYL CITRATE/PF 100MCG/2 ML INJ ONE; -IOPAMIDOL 300MG/ML 50ML INFUS..BTL IV ONE; -LIDOCAINE HCL 2% LOCAL INJ 5 ML SDV VIAL INJ ONE; -MIDAZOLAM HCL 2 MG/2 ML VIAL ONE; -ONDANSETRON HCL INJ 2MG/ML 2ML 2 MG/ML VIAL ONE; -PROPOFOL IV EMULSION 10 MG/ML 20 ML VIAL ONE; -SEVOFLURANE INHAL SOLN 250 ML PEN BTL ONE
--- NOTE | 2019-10-24 17:28 | Diagnostic Imaging Report ---
Exam: KUB - 2 views Indication: Preoperative Comparison: KUB of 07/12/2019 Findings: The right nephroureteral stent has been removed and 1.2 cm right renal calculus is no longer seen. The bowel gas pattern is unremarkable. Marked volume of fecal retention in the rectum compatible constipation. Cholecystectomy clips. Osseous structures appear unremarkable. Status post cholecystectomy. Impression: No radiopaque renal calculus. Signed by: Sachin Tariq MD on 10/24/2019 5:26 PM
== END ==
LOC: RAD 16:57
PROVIDERS: ATTEND Urology
DX: N20.0 Calculus of kidney (principal)
CPT/HCPCS: 74018